=== PATIENT | male | born 1975 | race Caucasian/White ===

== ENCOUNTER 2023-05-27 09:11 | Emergency (ER) | payer SELFPAY ==
[2023-05-27 09:19] VITALS: BP 141/70; PULSE 77; RESP 18; TEMP 98.4; BMI 34.5
[2023-05-27] MEDS ORDERED: DEXAMETHASONE SOD PHOSPHATE 10 MG/1 ML VIAL PO ONE (09:28)
[2023-05-27] MEDS ORDERED: diphenhydrAMINE HCL 25 MG CAPSULE (FP) PO ONE ×2 (09:28→09:40)
[2023-05-27] MEDS ORDERED: FAMOTIDINE 20 MG TABLET PO ONE (09:29)
[2023-05-27] MEDS ORDERED: FAMOTIDINE 20 MG TABLET ONE (09:41)
[2023-05-27] MEDS ORDERED: DEXAMETHASONE SOD PHOSPHATE 10 MG/1 ML VIAL ONE (09:41)
== END 2023-05-27 10:51 | disposition home or self-care (01) ==
LOC: JERFT 09:11 → JER 09:11 → JERFT 10:51
PROC: 3E033NZ Introduction of Analgesics, Hypnotics, Sedatives into Peripheral Vein, Percutaneous Approach (ICD-10-PCS; principal; 2023-05-27)
DX: R21 Rash and other nonspecific skin eruption (principal); T78.1XXA Other adverse food reactions, not elsewhere classified, initial encounter
CPT/HCPCS: 99284-25; J1100

== ENCOUNTER 2023-12-19 19:01 | Emergency (ER) | payer SELFPAY ==
[2023-12-19 19:33] VITALS: BP 155/71; PULSE 88; RESP 20; TEMP 98.3; BMI 34.7
[2023-12-19] MEDS ORDERED: DEXAMETHASONE SOD PHOSPHATE 10 MG/1 ML VIAL IM ONE (21:33)
[2023-12-19] MEDS ORDERED: diphenhydrAMINE HCL 25 MG CAPSULE (FP) PO ONE ×2 (21:33→21:37)
[2023-12-19] MEDS ORDERED: DEXAMETHASONE SOD PHOSPHATE 4 MG/1 ML VIAL ONE (21:37)
== END 2023-12-19 22:28 | disposition home or self-care (01) ==
LOC: JER 19:01
PROC: 3E023GC Introduction of Other Therapeutic Substance into Muscle, Percutaneous Approach (ICD-10-PCS; principal; 2023-12-19)
DX: R21 Rash and other nonspecific skin eruption (principal); T78.40XA Allergy, unspecified, initial encounter
CPT/HCPCS: 99284-25; J1100